=== PATIENT | female | born 1990 | race Caucasian/White ===

== ENCOUNTER → 2020-09-01 | Outpatient (CLI) | payer OTHER | LOC: LAB 09:25 | PROVIDERS: ATTEND Internal Medicine Cardiovascular Disease | DX: R05 Cough (principal); R53.81 Other malaise; Z20.828 Contact with and (suspected) exposure to other viral communicable diseases | CPT/HCPCS: U0003 ==

== ENCOUNTER → 2020-10-20 | Outpatient (CLI) | payer OTHER | LOC: LAB 08:05 | PROVIDERS: ATTEND Internal Medicine Cardiovascular Disease | DX: R05 Cough (principal); G43.909 Migraine, unspecified, not intractable, without status migrainosus; Z20.828 Contact with and (suspected) exposure to other viral communicable diseases | CPT/HCPCS: U0003 ==